=== PATIENT | male | born 1990 | race Caucasian/White ===

== ENCOUNTER 2017-11-12 04:16 | Inpatient (IN) | payer SELFPAY ==
[~2017-11-12] VITALS: Ht 188 cm; Wt 72.7 kg
[2017-11-12] MEDS ORDERED: ELVI1TAB3 PO (04:26)
[2017-11-12] MEDS ORDERED: IBUP-2354 PO (04:26)
[2017-11-12] MEDS ORDERED: ACETAMINOPHEN 500 MG TABLET PO ONE (04:30)
[2017-11-12] MEDS ORDERED: ACETAMINOPHEN 500 MG TABLET ONE (04:31)
[2017-11-12 05:26] LABS: BASOPHILS % (AUTO) 0.7 % (0.0-2.0); EOSINOPHILS % (AUTO) 0.1 % (1.0-6.0); HEMATOCRIT 41.6 % (41-53); HEMOGLOBIN 15.1 g/dL (13.5-17.5); LYMPHOCYTES # (AUTO) 0.6 K/uL (1.0-4.8); LYMPHOCYTES % (AUTO) 4.8 % (22.0-44.0); MEAN CORPUSCULAR HEMOGLOBIN 34.4 pg (26.0-34.0); MEAN CORPUSCULAR HGB CONC 36.4 G/dL (31.0-37.0); MEAN CORPUSCULAR VOLUME 94 fL (80-100); MONOCYTES # (AUTO) 0.9 K/uL (0.1-1.0); MONOCYTES % (AUTO) 6.9 % (2.0-9.0); NEUTROPHILS # (AUTO) 11.5 K/uL (1.8-7.7); PLATELET COUNT (AUTO) 289 K/uL (150-450); RED CELL DISTRIBUTION WIDTH 12.5 % (11.5-14.5)
[2017-11-12 05:28] LABS: ALANINE AMINOTRANSFERASE 20 U/L (12-78); ALBUMIN 3.6 g/dL (3.4-5.0); ALKALINE PHOSPHATASE 79 U/L (46-116); ANION GAP 7 mmol/L (8-16); ASPARTATE AMINOTRANSFERASE 18 U/L (15-37); BILIRUBIN,TOTAL 0.5 mg/dL (0.1-1.0); CALCIUM, TOTAL 8.7 mg/dL (8.8-10.5); CARBON DIOXIDE 29 mmol/L (22-29); CHLORIDE 93 mmol/L (98-107); CREATININE 1.05 mg/dL (0.60-1.30); GLOMERULAR FILTR. RATE CALC > 60 mL/min (>60); GLUCOSE,RANDOM 113 mg/dL (70-110); NEUTROPHILS % (AUTO) 87.5 % (40.0-70.0); SODIUM SERUM 129 mmol/L (136-145); TOTAL PROTEIN, SERUM 7.7 g/dL (6.4-8.2); UREA NITROGEN, BLOOD 7 mg/dL (7-18)
[2017-11-12 05:33] LABS: POTASSIUM 2.7 mmol/L (3.5-5.1)
[2017-11-12] MEDS ORDERED: KETOROLAC TROMETHAMINE 30 MG/ML VIAL IVP ONE (05:45)
[2017-11-12] MEDS ORDERED: POTASSIUM CHL 10 MEQ/WATER 50 ML IV ONE (05:45)
[2017-11-12] MEDS ORDERED: SODIUM CHLORIDE 0.9% 1,000 ML IV ONE ×2 (05:45→10:30)
[2017-11-12 05:52] LABS: APPEARANCE,URINE CLOUDY (CLEAR); BILIRUBIN,URINE NEGATIVE (NEGATIVE); GLUCOSE, URINE (UA) NEGATIVE (NEGATIVE); KETONES,URINE >=80 mg/dL (NEGATIVE); LEUKOCYTE ESTERASE ,URINE MODERATE (NEGATIVE); NITRATE,URINE POSITIVE (NEGATIVE); OCCULT BLOOD,URINE MODERATE (NEGATIVE); PROTEIN,URINE SEE CONFIRM (NEGATIVE)
[2017-11-12 06:09] LABS: BACTERIA,URINE Moderate /HPF (None Seen); SULFOSALICYLIC ACID,URINE 2+ (Negative); WBC,URINE 26-50 /HPF (0-5)
[2017-11-12 06:10] LABS: YEAST,URINE Few /HPF (None Seen)
[2017-11-12] MEDS ORDERED: SODIUM CHLORIDE 0.9% 2,000 ML IV ONE (06:15)
[2017-11-12 06:27] LABS: LIPASE 76 U/L (73-393)
[2017-11-12 06:27] LABS: AMPHET/METH SCREEN,URINE POSITIVE (NEGATIVE); BARBITURATE SCREEN, URINE NEGATIVE (NEGATIVE); BENZODIAZEPINES SCREEN,URINE NEGATIVE (NEGATIVE); CANNABINOID SCREEN,URINE POSITIVE (NEGATIVE); COCAINE SCREEN,URINE NEGATIVE (NEGATIVE); METHADONE SCREEN, URINE NEGATIVE (NEGATIVE); OPIATE SCREEN,URINE NEGATIVE (NEGATIVE)
[2017-11-12 06:35] LABS: PHENCYCLIDINE SCREEN,URINE NEGATIVE (NEGATIVE)
[2017-11-12] MEDS ORDERED: POTASSIUM CHLORIDE 10% 40 MEQ/30 ML LIQUID UDCUP PO ONE (07:15)
[2017-11-12] MEDS ORDERED: CefTRIAXone SODIUM 2 GM in DEXTROSE 5%-WATER 20 ML IV ONE (07:15)
[2017-11-12] MEDS ORDERED: GENTAMICIN SULFATE 160 MG in DEXTROSE 5%-WATER 100 ML IV ONE (07:15)
[2017-11-12] MEDS ORDERED: 0.9% SODIUM CHLORIDE 10 ML SYRINGE IVP PRN (10:00)
[2017-11-12] MEDS ORDERED: ACETAMINOPHEN 325 MG TABLET PO PRN (10:00)
[2017-11-12] MEDS ORDERED: ONDANSETRON HCL 4 MG/2 ML VIAL IVP PRN ×2 (10:00→10:30)
[2017-11-12] MEDS ORDERED: BISACODYL 10 MG RECTAL RECTAL SUPPOSITORY PR PRN (10:30)
[2017-11-12] MEDS ORDERED: *CLINICAL-LEVOFLOXACIN IVPB DOSING CLINICAL ONE (10:30)
[2017-11-12] MEDS ORDERED: MAGNESIUM HYDROXIDE SUSPENSION 30 ML UDCUP PO PRN (10:30)
[2017-11-12] MEDS ORDERED: ZOLPIDEM TARTRATE 5 MG TABLET PO PRN (10:30)
[2017-11-12] MEDS ORDERED: MORPHINE SULFATE 2 MG/ML SYRINGE IVP PRN (10:30)
[2017-11-12] MEDS ORDERED: SODIUM CHLORIDE 0.9% 0 ML IV ONE (11:41)
[2017-11-12] MEDS: MORPHINE SULFATE 4 MG/ML SYRINGE IVP PRN (11:58)
[2017-11-12] MEDS: LEVOFLOXACIN 750 MG/D5% WATER 150 ML IV SCH (11:58)
[2017-11-12 12:36] VITALS: BP 137/80
[2017-11-12] MEDS: HEPARIN SODIUM,PORCINE 5,000 UNITS/ML VIAL SQ SCH (15:26)
[2017-11-12 15:36] VITALS: BP 124/90
[2017-11-12 19:42] VITALS: BP 126/72
[2017-11-12] MEDS ORDERED: POTASSIUM CHL 10 MEQ/WATER 50 ML IV PRN (20:00)
[2017-11-12] MEDS: DOCUSATE SODIUM 100 MG CAPSULE PO SCH (20:21)
[2017-11-12] MEDS: ACETAMINOPHEN 325 MG TABLET PO PRN (20:21)
[2017-11-12] MEDS ORDERED: PNEUMOCOCCAL VACCINE POLYVALENT 0.5 ML VIAL [PPSV23] IM ONE (21:00)
[2017-11-12] MEDS: POTASSIUM CHLORIDE 20 MEQ ER TABLET PO PRN (22:18)
[2017-11-12 23:52] VITALS: BP 130/86
[2017-11-13 05:08] VITALS: BP 121/76
[2017-11-13 07:55] VITALS: BP 130/93
[2017-11-13] MEDS ORDERED: ELVITEG/COB/EMTRI/TENOF ALAFEN 150-150-200-10MG TABLET PO SCH (08:00)
[2017-11-13] MEDS: MORPHINE SULFATE 4 MG/ML SYRINGE IVP PRN (08:53)
[2017-11-13] MEDS: DOCUSATE SODIUM 100 MG CAPSULE PO SCH ×2 (08:53→20:12)
[2017-11-13] MEDS: HEPARIN SODIUM,PORCINE 5,000 UNITS/ML VIAL SQ SCH ×4 (08:54→23:28)
[2017-11-13] MEDS: POTASSIUM CHLORIDE 20 MEQ ER TABLET PO PRN ×2 (08:54→20:12)
[2017-11-13] MEDS ORDERED: PANTOPRAZOLE SODIUM 40 MG DR TABLET PO SCH (09:00)
[2017-11-13 11:41] VITALS: BP 130/78
[2017-11-13] MEDS ORDERED: ONDANSETRON HCL 4 MG/2 ML VIAL IVP PRN (12:30)
[2017-11-13] MEDS: LEVOFLOXACIN 750 MG/D5% WATER 150 ML IV SCH (12:41)
[2017-11-13 15:31] VITALS: BP 135/85
[2017-11-13] MEDS: ACETAMINOPHEN 325 MG TABLET PO PRN ×3 (17:42→23:27)
[2017-11-13 19:35] VITALS: BP 119/75
[2017-11-13 23:10] VITALS: BP 122/83
[2017-11-14 04:30] VITALS: BP 136/88
[2017-11-14] MEDS: ACETAMINOPHEN 325 MG TABLET PO PRN ×2 (05:29→11:19)
[2017-11-14 08:08] VITALS: BP 145/90
[2017-11-14] MEDS: ELVITEG/COB/EMTRI/TENOF ALAFEN 150-150-200-10MG TABLET PO SCH (08:16)
[2017-11-14] MEDS: HEPARIN SODIUM,PORCINE 5,000 UNITS/ML VIAL SQ SCH ×3 (08:16→23:18)
[2017-11-14] MEDS: DOCUSATE SODIUM 100 MG CAPSULE PO SCH ×2 (08:16→20:22)
[2017-11-14] MEDS: LEVOFLOXACIN 750 MG/D5% WATER 150 ML IV SCH (11:19)
[2017-11-14 12:23] VITALS: BP 140/73
[2017-11-14 19:00] VITALS: BP 133/77
[2017-11-15] VITALS: BP 123/78
[2017-11-15 04:00] VITALS: BP 119/71
[2017-11-15 06:01] LABS: BASOPHILS % (AUTO) 0.3 % (0.0-2.0); EOSINOPHILS % (AUTO) 0.6 % (1.0-6.0); HEMATOCRIT 41.5 % (41-53); HEMOGLOBIN 15.2 g/dL (13.5-17.5); LYMPHOCYTES # (AUTO) 1.6 K/uL (1.0-4.8); LYMPHOCYTES % (AUTO) 22.6 % (22.0-44.0); MEAN CORPUSCULAR HEMOGLOBIN 34.3 pg (26.0-34.0); MEAN CORPUSCULAR HGB CONC 36.6 G/dL (31.0-37.0); MEAN CORPUSCULAR VOLUME 94 fL (80-100); MONOCYTES # (AUTO) 1.1 K/uL (0.1-1.0); MONOCYTES % (AUTO) 14.8 % (2.0-9.0); NEUTROPHILS # (AUTO) 4.5 K/uL (1.8-7.7); NEUTROPHILS % (AUTO) 61.7 % (40.0-70.0); PLATELET COUNT (AUTO) 277 K/uL (150-450); RED BLOOD CELL COUNT(AUTO) 4.43 MIL/uL (4.50-5.90); RED CELL DISTRIBUTION WIDTH 12.9 % (11.5-14.5)
[2017-11-15 06:12] LABS: ANION GAP 8 mmol/L (8-16); CARBON DIOXIDE 28 mmol/L (22-29); CHLORIDE 98 mmol/L (98-107); CREATININE 0.76 mg/dL (0.60-1.30); GLOMERULAR FILTR. RATE CALC > 60 mL/min (>60); GLUCOSE,RANDOM 93 mg/dL (70-110); POTASSIUM 3.6 mmol/L (3.5-5.1); SODIUM SERUM 134 mmol/L (136-145); UREA NITROGEN, BLOOD 7 mg/dL (7-18)
[2017-11-15 06:13] LABS: CALCIUM, TOTAL 9.1 mg/dL (8.8-10.5)
[2017-11-15 07:51] VITALS: BP 130/58
[2017-11-15] MEDS: ELVITEG/COB/EMTRI/TENOF ALAFEN 150-150-200-10MG TABLET PO SCH (08:02)
[2017-11-15] MEDS: HEPARIN SODIUM,PORCINE 5,000 UNITS/ML VIAL SQ SCH ×2 (08:02→16:00)
[2017-11-15] MEDS: DOCUSATE SODIUM 100 MG CAPSULE PO SCH (08:02)
[2017-11-15] MEDS: LEVOFLOXACIN 750 MG/D5% WATER 150 ML IV SCH (11:58)
[2017-11-15 13:56] VITALS: BP 122/70
[2017-11-15] MEDS ORDERED: CEPH500 PO (14:39)
[2017-11-15] MEDS ORDERED: ONDA4 PO (14:40)
== END 2017-11-15 16:37 | disposition home or self-care (01) | DRG 872 ==
LOC: EMS 04:17 → 6N 10:46
PROVIDERS: ADMIT Internal Medicine; ATTEND Internal Medicine
DX: A41.9 Sepsis, unspecified organism (principal); N12 Tubulo-interstitial nephritis, not specified as acute or chronic; B96.20 Unspecified Escherichia coli [E. coli] as the cause of diseases classified elsewhere; E87.6 Hypokalemia; F15.10 Other stimulant abuse, uncomplicated; K08.89 Other specified disorders of teeth and supporting structures; Z87.891 Personal history of nicotine dependence; Z28.21 Immunization not carried out because of patient refusal
CPT/HCPCS: 76770; 83605; 84132; 87040; 87086; 87205; 90471; 96361; 96365; 96367; 96375; 99291; G0480; J0696; J1580; J1644; J1885; J1956; J2270; J2405; J3480; J7030; J7050; J7060